=== PATIENT | female | born 2000 | race American Indian/Alaskan Native ===

== ENCOUNTER → 2024-08-20 | Outpatient (CLI) | payer MEDICAID, SELFPAY ==
--- NOTE | 2024-08-20 13:30 | XR_ITS ---
Examination: SOFT TISSUE NECK TECHNIQUE: Grayscale sonographic images soft tissue neck Exam date and time: August 20, 2024 1342 hours INDICATIONS: Palpable lump in the neck note is beginning 2 weeks ago FINDINGS: Mid upper neck lymph node 9 x 4 x 7 mm at the area concern IMPRESSION: Lymph node as above, suggest continued 6 month follow-up ultrasound soft tissue neck
== END | disposition home or self-care (01) ==
PROVIDERS: PCP Nurse Practitioner Family; Referring Provider Nurse Practitioner Family; Visit Provider Nurse Practitioner Family
DX: R22.1 Localized swelling, mass and lump, neck (principal); Z80.8 Family history of malignant neoplasm of other organs or systems
CPT/HCPCS: 76536